=== PATIENT | female | born 1965 | race Caucasian/White ===

== ENCOUNTER 2016-09-29 20:07 | Emergency (ER) | payer MEDICAID, OTHER ==
[~2016-09-29] VITALS: Ht 160 cm; Wt 63.5 kg
[2016-09-29] MEDS ORDERED: ADULT WAL-100 MG/5 M ORAL (20:59)
[2016-09-29] MEDS ORDERED: ZITHROMAX250 MG ORAL (20:59)
--- NOTE | 2016-09-29 21:08 | Emergency Room Report ---
History of Present Illness General Chief Complaint: Flu Like Symptoms Source: Patient Present Illness HPI Patient is a 51-year-old female who presented after increased fever along with left ear pain and a nonproductive cough. Patient reported having increased facial pain. Patient gradual onset of symptoms over the past few days. Patient stated that she had missed her appointment with her physician. Patient reports having some sore throat. She denies having any hearing loss or ear discharge. Patient had recent left wrist fracture which she had some recent trauma. Patient denied any other areas of pain. Allergies: Coded Allergies: No Known Allergies (Unverified , 09/29/16) Patient History Reviewed Nursing Documentation: PMH: Agreed, PSxH: Agreed Nursing Documentation-PMH Hx Gastrointestinal Problems: Yes - GASTRIC SURGERY Review of Systems All Other Systems: negative except mentioned in HPI Physical Exam Vital Signs Date Time Temp Pulse Resp B/P Pulse Ox O2 Delivery O2 Flow Rate FiO2 09/29/16 20:30 100.4 116 18 107/64 96 Room Air General Appearance: well appearing, no apparent distress, alert, GCS 15 Head: normocephalic, atraumatic Eyes: bilateral eye lid inflammation ENT: hearing grossly normal, normal voice Neck: full range of motion, supple Respiratory: no respiratory distress, speaking full sentences Cardiovascular #1: normal inspection, normal peripheral pulses Gastrointestinal: normal bowel sounds, non tender Musculoskeletal: normal inspection, back normal, no calf tenderness Neurologic: normal inspection, alert, oriented x3, responsive, keno terminal operator III-XII nml as tested, normal gait Psychiatric: mood/affect normal Skin: no rash Medical Decision Making Diagnostic Impression: Primary Impression: Otitis media ER Course Patient presented for ear pain. Differential diagnosis included was not limited to otitis media, malignant otitis externa, foreign body, cellulitis, mastoiditis, carotid dissection, myocardial infarction among others. The patient presented as a left otitis media. Patient will be treated with antibiotics. Patient was noted to have some low-grade temperature. The patient was placed in a preform splint do to left wrist pain after recent fracture. Patient stated she had known fracture. The patient is advised to follow up with primary care doctor in 2-3 days for recheck. Patient is advised to followup with orthopedics. Patient is advised to return if any worsening condition or if any changes in status that are concerning. Last Vital Signs Date Time Temp Pulse Resp B/P Pulse Ox O2 Delivery O2 Flow Rate FiO2 09/29/16 20:30 100.4 116 18 107/64 96 Room Air Status: improved Disposition: HOME, SELF-CARE Condition: Stable Scripts Guaifenesin* (ADULT WAL-TUSSIN*) 100 Mg/5 Ml Liquid 10 ML ORAL Q4H, #120 ML Prov: Garth Morales 09/29/16 Azithromycin* (ZITHROMAX*) 250 Mg Tablet 250 MG ORAL DAILY, #6 TAB 0 Refills Take two tables once daily for 1 day, then one tablet once daily for 4 days. Prov: Garth Morales 09/29/16 Patient Instructions: Otitis Media, Adult, Wrist Fracture Garth Morales Sep 29, 2016 21:08
[2016-09-29 21:20] VITALS: BP 107/64
[2016-09-29 21:49] VITALS: BP 107/64
== END 2016-09-29 21:49 | disposition home or self-care (01) ==
LOC: EMR 20:55
DX: H66.92 Otitis media, unspecified, left ear (principal); R50.9 Fever, unspecified; R05 Cough; H92.02 Otalgia, left ear; J02.9 Acute pharyngitis, unspecified; H01.9 Unspecified inflammation of eyelid
CPT/HCPCS: 99284

== ENCOUNTER 2016-10-16 21:58 | Emergency (ER) | payer OTHER ==
[~2016-10-16] VITALS: Ht 160 cm; Wt 65.8 kg
[~2016-10-16 21:58] MED LIST: ADULT WAL-100 MG/5 M ORAL; ZITHROMAX250 MG ORAL
[2016-10-16 22:30] VITALS: BP 105/50
[2016-10-16] MEDS ORDERED: IBUPROFEN600 MG ORAL (23:51)
[2016-10-16] MEDS ORDERED: NORCO 5-325 TA1 EACH ORAL (23:51)
[2016-10-17] VITALS: BP 115/55
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
--- NOTE | 2016-10-17 08:53 | Diagnostic Imaging Report ---
Indications: Left wrist pain Technique: 3 views left wrist Findings: Comparison: None There is a comminuted fracture through the distal radial metaphysis and epiphysis, extending to the distal articular surface. No significant displacement or angulation. Associated endosteal and periosteal callus formation. Focal cortical irregularity of ulnar styloid. Surrounding soft tissues are swollen. No dislocation, joint space widening, soft tissue foreign body or gas, or other acute change identified. IMPRESSION: Distal radial and possible ulnar styloid fractures as described, with evidence of partial healing
--- NOTE | 2016-10-17 08:54 | Diagnostic Imaging Report ---
Indications: Left knee pain Technique: 3 views of the left knee Findings: Comparison: None No fracture, dislocation, lytic destruction, periosteal reaction, joint space widening or effusion, surrounding soft tissue abnormality, or other acute changes demonstrated. No deformity, alignment abnormality, arthritic change, soft tissue calcification, or other chronic changes demonstrated. IMPRESSION: Negative left knee series.
== END 2016-10-17 | disposition home or self-care (01) ==
LOC: EMR 22:58
DX: S83.92XA Sprain of unspecified site of left knee, initial encounter (principal); S62.102A Fracture of unspecified carpal bone, left wrist, initial encounter for closed fracture; Y08.89XA Assault by other specified means, initial encounter; X58.XXXA Exposure to other specified factors, initial encounter; Y93.9 Activity, unspecified; Y92.009 Unspecified place in unspecified non-institutional (private) residence as the place of occurrence of the external cause
CPT/HCPCS: 29530; 99284